=== PATIENT | female | born 1965 | race Caucasian/White ===

== ENCOUNTER → 2017-02-07 | Day surgery (SDC) | payer OTHER ==
[~2017-02-07] MED LIST: GABA-585 PO; IV RINGERS,LACTATED 1000ML 1,000 ML IV SCH; LIDOCAINE 1% PF 2 ML VIAL. ID PRN; LIDOCAINE 2% PF Vial for OR 5 ML VIAL. ONE; LORA10CA PO; ONDANSETRON PF 4 MG/2 ML VIAL. IV PRN; PRAM0.255 PO; PROPOFOL 20 ML IV ONE; PROPOFOL 60 ML IV ONE; fentaNYL PF VIAL 100 MCG/2 ML VIAL IV ONE; fentaNYL PF VIAL 100 MCG/2 ML VIAL IV PRN
[2017-02-07 11:27] VITALS: BP 128/70
--- NOTE | 2017-02-10 13:19 | PATHOLOGY ---
PATHOLOGY REPORT * * * * * * * * FINAL DIAGNOSIS: Gastric biopsy, gastric ulcer: - Active chronic gastritis, moderate, with few Helicobacter organisms identified. COMMENT: Sections of the gastric ulcer biopsy reveal segments of gastric antral mucosa showing focal congestion and moderate active chronic inflammation. An immunoperoxidase stain for Helicobacter is obtained. There are a few Helicobacter organisms identified. There is no evidence of malignancy. (JPM:mml; 02/10/2017) REPORT ELECTRONICALLY SIGNED BY: Malcolm Smalls M.D. DATE/TIME: 02/10/2017 13:18 * * * * * * * * GROSS PATHOLOGY: Received in formalin labeled "Izaiah Lincoln, gastric ulcer BX," are 2 segments of szymanski soft tissue measuring 0.8 x 0.4 x 0.3 cm in aggregate dimensions and ranging from 0.4 to 0.4 cm in maximum dimension. The specimen is submitted entirely in cassette A1. (TSD; 02/07/2017) INITIAL CPT CODE(S): A; 22069, 07065 Professional services performed [place] [facility] [address] Technical services performed by [facility] at [address] [place] [address]. SPECIMEN(S) RECEIVED: A.Gastric ulcer CLINICAL HISTORY: Epigastric pain, screening PATIENT: IZAIAH LINCOLN /AGE: 11 1965 (Age: 51) PATIENT #: [id number] ALT CASE #: SPECIMEN COLLECTION DATE: 02/07/2017 SPECIMEN RECEIVED DATE: 02/07/2017 [facility] [place] [address] - PHONE: [phone] * * * END OF REPORT * * *
== END | disposition home or self-care (01) ==
LOC: ENDOS 09:04
PROVIDERS: ATTEND Internal Medicine Gastroenterology
DX: Z12.11 Encounter for screening for malignant neoplasm of colon (principal); K64.0 First degree hemorrhoids; K63.89 Other specified diseases of intestine; K29.50 Unspecified chronic gastritis without bleeding; K25.9 Gastric ulcer, unspecified as acute or chronic, without hemorrhage or perforation; F41.9 Anxiety disorder, unspecified; M79.7 Fibromyalgia; J45.909 Unspecified asthma, uncomplicated; F32.9 Major depressive disorder, single episode, unspecified; Z83.71 Family history of colonic polyps; Z87.891 Personal history of nicotine dependence; Z88.8 Allergy status to other drugs, medicaments and biological substances; Z82.49 Family history of ischemic heart disease and other diseases of the circulatory system
CPT/HCPCS: 43239; 45378; 88305; 88342; J2704; J3010; J2001

== ENCOUNTER → 2017-02-21 | Outpatient (CLI) | payer OTHER ==
[2017-02-07 11:27] VITALS: BP 128/70
[~2017-02-21] MED LIST changes: -IV RINGERS,LACTATED 1000ML 1,000 ML IV SCH; -LIDOCAINE 1% PF 2 ML VIAL. ID PRN; -LIDOCAINE 2% PF Vial for OR 5 ML VIAL. ONE; -ONDANSETRON PF 4 MG/2 ML VIAL. IV PRN; -PROPOFOL 20 ML IV ONE; -PROPOFOL 60 ML IV ONE; -fentaNYL PF VIAL 100 MCG/2 ML VIAL IV ONE; -fentaNYL PF VIAL 100 MCG/2 ML VIAL IV PRN
--- NOTE | 2017-02-21 13:50 | KCIC ---
INDICATION: Incomplete colonoscopy, reached the hepatic flexure. No symptoms. TECHNIQUE: Double contrast barium enema was performed. Fluoroscopy time is 2 minutes 15 seconds. Image count including both overhead images and fluoroscopic images is 25. FINDINGS: Preparation prior to the barium enema was satisfactory. There is no significant retained stool. Lens Cementer film demonstrates calcified phleboliths in the pelvis. There is no polyp, plaque-like lesion, or annular constricting lesion identified. Cecum is filled, contrast refluxes into both the terminal ileum and into the appendix. IMPRESSION: Normal double contrast barium enema. Electronically signed by: Guillermo Dennis MD (02/21/2017 1:47 PM) [facility]
== END | disposition home or self-care (01) ==
LOC: KCIC 09:07
PROVIDERS: ATTEND Internal Medicine Gastroenterology
DX: Z12.11 Encounter for screening for malignant neoplasm of colon (principal); R10.9 Unspecified abdominal pain
CPT/HCPCS: 74270

== ENCOUNTER 2017-05-25 15:33 | Emergency (ER) | payer OTHER ==
[2017-05-25] MEDS: HYDROcodone/APAP 5/325MG 1 TAB TABLET PO (15:59)
== END 2017-05-25 16:04 | disposition home or self-care (01) ==
LOC: ER 15:33
DX: S29.012A Strain of muscle and tendon of back wall of thorax, initial encounter (principal); M79.7 Fibromyalgia; Z88.5 Allergy status to narcotic agent; Z88.6 Allergy status to analgesic agent; Z88.8 Allergy status to other drugs, medicaments and biological substances; X58.XXXA Exposure to other specified factors, initial encounter; Y93.89 Activity, other specified; Y99.8 Other external cause status; Y92.89 Other specified places as the place of occurrence of the external cause
CPT/HCPCS: 99283

== ENCOUNTER 2017-05-27 13:34 | Emergency (ER) | payer OTHER ==
[2017-05-27] MEDS: ONDANSETRON ODT 4 MG TAB.RAPDIS. PO (13:55)
[2017-05-27] MEDS: IV NORMAL SALINE 1000ML BAG 1,000 ML IV (14:17)
[2017-05-27] MEDS: ONDANSETRON PF 4 MG/2 ML VIAL. IV (14:22)
[2017-05-27] MEDS: fentaNYL PF VIAL 100 MCG/2 ML VIAL IV (14:26)
[2017-05-27 14:27] LABS: ADD MAN DIFF? NO
[2017-05-27 14:30] LABS: BASO # 0.1 x10^3/uL (0.0-0.2); BASO % 1 % (0-3); EOS # 0.1 x10^3/uL (0.0-0.7); EOS % 1 % (0-3); HEMATOCRIT 33.8 % (36.0-47.0); HEMOGLOBIN 10.6 g/dL (12.0-15.5); LYMPH # 1.7 x10^3/uL (1.0-4.8); LYMPH % 15 % (24-48); MEAN CORPUSCULAR HEMOGLOBIN 26 pg (25-35); MEAN CORPUSCULAR HGB CONC 31 g/dL (31-37); MEAN CORPUSCULAR VOLUME 83 fL (79-100); MONO # 0.6 x10^3/uL (0.0-1.1); MONO % 6 % (0-9); NEUT # 8.6 x10^3uL (1.8-7.7); NEUT % 78 % (31-73); PLATELET COUNT 309 x10^3/uL (140-400); RED BLOOD COUNT 4.05 x10^6/uL (3.50-5.40); RED CELL DISTRIBUTION WIDTH 15.3 % (11.5-14.5); WHITE BLOOD COUNT 11.1 x10^3/uL (4.0-11.0)
[2017-05-27 14:36] LABS: ANION GAP 8 (6-14); BLOOD UREA NITROGEN 27 mg/dL (7-20); BUN/CREATININE RATIO 45 (6-20); CALCIUM 9.6 mg/dL (8.5-10.1); CARBON DIOXIDE 30 mmol/L (21-32); CHLORIDE 101 mmol/L (98-107); CREATININE 0.6 mg/dL (0.6-1.0); GFR 104.6; GLUCOSE 100 mg/dL (70-99); POTASSIUM 4.5 mmol/L (3.5-5.1); SODIUM 139 mmol/L (136-145)
[2017-05-27 14:38] LABS: INFLUENZA A PATIENT NEGATIVE (NEGATIVE); INFLUENZA B PATIENT NEGATIVE (NEGATIVE); OBC FLU VALID
[2017-05-27 14:42] LABS: ALBUMIN 3.6 g/dL (3.4-5.0); ALK PHOS 80 U/L (46-116); ALT (SGPT) 57 U/L (14-59); AST (SGOT) 52 U/L (15-37); LIPASE 233 U/L (73-393); TOTAL BILIRUBIN 0.2 mg/dL (0.2-1.0); TOTAL PROTEIN 7.1 g/dL (6.4-8.2)
[2017-05-27 15:02] LABS: BILIRUBIN,URINE NEGATIVE (NEG); CLARITY,URINE CLOUDY; COLOR,URINE YELLOW; GLUCOSE,URINE NEGATIVE (NEG); NITRITE,URINE NEGATIVE (NEG); PH,URINE 7.5; PROTEIN,URINE NEGATIVE (NEG-TRACE); UROBILINOGEN,URINE 0.2 mg/dL (0.2 mg/dL)
[2017-05-27 15:16] LABS: BACTERIA,URINE 0 /HPF (0-FEW); RBC,URINE OCC /HPF (0-2); SQUAMOUS EPITHELIAL CELL,UR OCC /LPF; WBC,URINE OCC /HPF (0-4)
[2017-05-27] MEDS: MORPHINE SULFATE 4 MG/ML DISP.SYRIN. IV (15:18)
[2017-05-27] MEDS: hydrOXYzine IM 50 MG/ML VIAL IM (15:20)
== END 2017-05-27 15:50 | disposition home or self-care (01) ==
LOC: ER 13:34
DX: E86.0 Dehydration (principal); R11.2 Nausea with vomiting, unspecified; R19.7 Diarrhea, unspecified; M19.90 Unspecified osteoarthritis, unspecified site; F31.9 Bipolar disorder, unspecified; M79.7 Fibromyalgia; G43.909 Migraine, unspecified, not intractable, without status migrainosus; G89.29 Other chronic pain; Z90.710 Acquired absence of both cervix and uterus; Z88.5 Allergy status to narcotic agent; Z88.8 Allergy status to other drugs, medicaments and biological substances
CPT/HCPCS: 36415; 80053; 81001; 83690; 85025; 87804; 87804-59; 96361; 96372; 96374; 96375; 99284-25; J2270; J2405; J3010; J3410; J7030; Q0162

== ENCOUNTER 2017-05-28 11:44 | Emergency (ER) | payer OTHER | END 2017-05-28 13:13 | disposition home or self-care (01) | LOC: ER 13:13 | DX: G89.29 Other chronic pain (principal); M25.511 Pain in right shoulder; M79.7 Fibromyalgia; F31.9 Bipolar disorder, unspecified; G43.909 Migraine, unspecified, not intractable, without status migrainosus; F11.20 Opioid dependence, uncomplicated; Z88.5 Allergy status to narcotic agent; Z88.6 Allergy status to analgesic agent; Z88.8 Allergy status to other drugs, medicaments and biological substances | CPT/HCPCS: 73030; 99284 ==

== ENCOUNTER → 2018-10-16 | Outpatient (CLI) | payer MEDICAID ==
[2017-05-28 12:14] VITALS: BP 163/80
[~2018-10-16] MED LIST changes: +ALBU2.5V8 INH; +ASPI-621 PO; +GABA600T7 PO; +HYDR-3164 PO; +OMEP40CA5 PO; +ONDA8TAB12 PO; +OSEL75CA PO; +SOLI5TAB2 PO; +TIZA4TAB PO; +TOPI25TA7 PO; +VENL150C PO; +[UNRECOGNIZED DRUG - REMARK] PO
[2018-10-16 14:00] LABS: BASO % 1 % (0-3); EOS # 0.1 x10^3/uL (0.0-0.7); EOS % 2 % (0-3); HEMOGLOBIN 11.2 g/dL (12.0-15.5); LYMPH # 1.3 x10^3/uL (1.0-4.8); LYMPH % 25 % (24-48); MEAN CORPUSCULAR HEMOGLOBIN 25 pg (25-35); MEAN CORPUSCULAR HGB CONC 32 g/dL (31-37); MEAN CORPUSCULAR VOLUME 78 fL (79-100); MONO # 0.3 x10^3/uL (0.0-1.1); MONO % 6 % (0-9); NEUT # 3.6 x10^3uL (1.8-7.7); NEUT % 66 % (31-73); PLATELET COUNT 335 x10^3/uL (140-400); RED BLOOD COUNT 4.49 x10^6/uL (3.50-5.40); RED CELL DISTRIBUTION WIDTH 15.3 % (11.5-14.5); WHITE BLOOD COUNT 5.4 x10^3/uL (4.0-11.0)
--- NOTE | 2018-10-16 14:03 | EKG ---
[facility] [address] [place] [address] Test Date: 2018-10-16 Test Time: 14:05:02 Pat Name: IZAIAH LINCOLN Department: Room: Gender: F Outpatient Admitting Clerk: TEAGAN : 1965 Requested By: ANOOP KOTHARI Order Number: [id number] Reading MD: Ayaan Ulrich Measurements Intervals [place] Rate: 67 P: 44 HI: 132 QRS: -19 QRSD: 76 T: 25 QT: 414 QTc: 440 Interpretive Statements SINUS RHYTHM LEFTWARD AXIS Electronically Signed On 10-20-2018 16:14:23 CDT by Ayaan Ulrich
--- NOTE | 2018-10-16 15:07 | RAD ---
Chest, 2 views, 10/16/2018: HISTORY: Preop evaluation for cystocele and rectocele surgery The heart size is of normal. A dense nodule in the left lower lobe is probably a calcified granuloma. No acute infiltrate is seen. There is no evidence of pleural fluid. IMPRESSION: No acute cardiopulmonary abnormality is detected. Electronically signed by: Chencho Ventura MD (10/16/2018 3:04 PM) [facility]
[2018-10-16 18:28] LABS: ALBUMIN 3.9 g/dL (3.4-5.0); ALBUMIN/GLOBULIN RATIO 1.1 (1.0-1.7); CALCIUM 10.3 mg/dL (8.5-10.1); CREATININE 0.7 mg/dL (0.6-1.0); GFR 87.2; POTASSIUM 3.8 mmol/L (3.5-5.1); TOTAL BILIRUBIN 0.2 mg/dL (0.2-1.0); TOTAL PROTEIN 7.6 g/dL (6.4-8.2)
--- NOTE | 2018-10-20 11:28 | NUR ---
FAXED PRE - OP TEST REPORTS TO 'S OFFICE FOR REVIEW WITH A NOTE THAT EKG'S PRELIMINARY REPORT WAS REVIEWED BY DULCE MARIA MICHEL RN, ANESTHESIA TEAM AT 1315 AND WAS OKAY AT 10/19/2018 AT 1505 AND RECEIVED TRANSMITTAL CONFIRMATION. ALSO CALLED 'S OFFICE AND TALKED TO CRYS MARIANO AND NOTIFIED THAT UA WAS NOT DONE 10/16/18 VISIT AND SHE SAID SHE WILL CALL PATIENT.
== END | disposition home or self-care (01) ==
LOC: SURGPAT 12:51
PROVIDERS: ATTEND Obstetrics & Gynecology
DX: Z01.818 Encounter for other preprocedural examination (principal); N81.10 Cystocele, unspecified; N81.6 Rectocele; R91.1 Solitary pulmonary nodule
CPT/HCPCS: 36415; 71046; 80053; 85025; 93005

== ENCOUNTER 2018-10-22 05:53 | Observation (INO) | payer OTHER ==
[2018-10-22] VITALS (12 sets, daily range): BP systolic 108–142; BP diastolic 60–94
[~2018-10-22] VITALS: Ht 154.9 cm; Wt 77.0 kg
[~2018-10-22 05:53] MED LIST changes: +BUPIVACAINE-EPI 0.25%-1:200000 MPF 30 ML VIAL. ONE; +ESTROGENS, CONJ VAGINAL CREAM 30GM TUBE. ONE
[2018-10-22] MEDS ORDERED: BUPIVACAINE-EPI 0.25%-1:200000 MPF 30 ML VIAL. ONE (06:15)
[2018-10-22] MEDS ORDERED: fentaNYL PF VIAL 100 MCG/2 ML VIAL IV PRN ×2 (07:00)
[2018-10-22] MEDS ORDERED: ONDANSETRON PF 4 MG/2 ML VIAL. IV PRN ×2 (07:00→10:15)
[2018-10-22] MEDS ORDERED: IV RINGERS,LACTATED 1000ML 1,000 ML IV SCH (07:00)
[2018-10-22] MEDS ORDERED: LIDOCAINE 1% PF 2 ML VIAL. ID PRN (07:00)
[2018-10-22] MEDS ORDERED: PROPOFOL 20 ML IV ONE (07:11)
[2018-10-22] MEDS ORDERED: ONDANSETRON PF 4 MG/2 ML VIAL. ONE (07:11)
[2018-10-22] MEDS ORDERED: ROCURONIUM 50 MG/5 ML VIAL. ONE (07:11)
[2018-10-22] MEDS ORDERED: DEXAMETHASONE SOD PHOS 4 MG/ML VIAL ONE (07:11)
[2018-10-22] MEDS ORDERED: LIDOCAINE 2% PF 5 ML VIAL. ONE (07:11)
[2018-10-22] MEDS ORDERED: FAMOTIDINE 20 MG/2 ML VIAL ONE (07:11)
[2018-10-22] MEDS ORDERED: fentaNYL PF VIAL 100 MCG/2 ML VIAL ONE ×2 (07:12→08:50)
[2018-10-22] MEDS ORDERED: MIDAZOLAM HCL/PF 2 MG/2 ML VIAL. ONE (07:12)
[2018-10-22] MEDS ORDERED: ALBUTEROL SULFATE 2.5 MG/3 ML NEBU. INH PRN (07:45)
[2018-10-22] MEDS ORDERED: GLYCOPYRROLATE 1 MG/5 ML VIAL. ONE (08:06)
[2018-10-22] MEDS ORDERED: NEOSTIGMINE METHYLSULFATE 5 MG/5 ML SYRINGE. ONE (08:07)
[2018-10-22] MEDS ORDERED: SEVOFLURANE > 120 MINUTES. IH ONE (09:22)
--- NOTE | 2018-10-22 10:05 | PDOC ---
BRIEF OPERATIVE NOTE Date: Oct 22, 2018 Pre-Op Diagnosis cystocele, rectocele, GSUI with uretheral hypermobility Post-Op Diagnosis same Procedure Performed cystocele and rectocele repairs with TVT abbrevo and cystoscopy Surgeon Dr. Rosa Kothari Anesthesiologist Dr. Romero Anesthesia Type: General Blood Loss 25cc IV Fluid 1L Urine Output 350cc clear via recio Specimens Obtained none Findings 2-3 degree cystocele, 2 rectocele, uretheral hypermobility Complications none Operative Note [id number] ROSA KOTHARI MD Oct 22, 2018 10:05
[2018-10-22] MEDS ORDERED: HYDROcodone/APAP 5/325MG 1 TAB TABLET PO PRN (10:15)
[2018-10-22] MEDS ORDERED: 0.9 % SODIUM CHLORIDE 10 ML DISP.SYRIN. IV PRN (10:15)
[2018-10-22] MEDS ORDERED: NALOXONE 0.4 MG/ML VIAL. IV PRN (10:15)
[2018-10-22] MEDS ORDERED: ZOLPIDEM 5 MG TABLET. PO PRN (10:15)
[2018-10-22] MEDS ORDERED: diphenhydrAMINE 50 MG/ML VIAL IV PRN (10:15)
[2018-10-22] MEDS ORDERED: MAGNESIUM HYDROXIDE 2,400 MG/30 ML ORAL.SUSP. PO PRN (10:15)
[2018-10-22] MEDS ORDERED: MAG HYDROX/ALUMINUM HYD/SIMETH 30 ML ORAL.SUSP PO PRN (10:15)
[2018-10-22] MEDS ORDERED: LACTULOSE 20 GM/30 ML SOLUTION. PO PRN (10:15)
[2018-10-22] MEDS ORDERED: diphenhydrAMINE HCL 25 MG CAPSULE PO PRN (10:15)
[2018-10-22] MEDS ORDERED: CALCIUM CARBONATE 500 MG TAB.CHEW PO PRN (10:15)
[2018-10-22] MEDS ORDERED: SIMETHICONE 80 MG TAB.CHEW PO PRN (10:15)
[2018-10-22] MEDS ORDERED: SCOPOLAMINE 1.5MG PATCH. TD ONE ×3 (10:27→10:30)
[2018-10-22] MEDS ORDERED: MORPHINE SULFATE 2 MG/ML VIAL. IV PRN (10:30)
[2018-10-22] MEDS: MORPHINE SULFATE 2 MG/ML VIAL. IV PRN ×3 (10:34→22:26)
[2018-10-22] MEDS ORDERED: ceFAZolin 2GM PREMIX 2 GM/50 ML BAG IV ONE (11:00)
--- NOTE | 2018-10-22 11:32 | OP ---
DATE OF SURGERY: This patient is a 53-year-old with a cystocele, rectocele, urethral hypermobility and genuine stress urinary incontinence, desiring surgical repair. She underwent an anterior and posterior colporrhaphy with cystocele and rectocele repairs, TVT-Abbrevo and cystoscopy. SURGEON: Anoop Kothari M.D. SUPERVISING FILM OR VIDEOTAPE EDITOR: OR personnel. ANESTHESIA: General. ANESTHESIOLOGIST: Merrill Romero M.D. ESTIMATED BLOOD LOSS: 25 mL. URINE OUTPUT: 350 mL clear via Wray catheter. IV FLUIDS: 1 liter of crystalloid. SPECIMENS: None. FINDINGS: Second to third degree cystocele, second-degree rectocele, urethral hypermobility. COMPLICATIONS: None. DESCRIPTION OF PROCEDURE: This patient was taken to the operating room where general anesthesia was placed. The patient was placed in dorsal lithotomy position in Guy stirrups. The patient's vagina was prepped and draped in the normal sterile fashion and a Wray catheter had been inserted under sterile technique. Upon my arrival, a timeout was performed. She had received her preoperative antibiotics and a weighted speculum was placed in the patient's vagina. Allis clamps were placed on the vaginal cuff. She was injected with a total of 150 mL of a dilute solution of 30 mL of 0.25% Marcaine with epinephrine to 120 mL of injectable saline in the anterior repair where the suburethral sling would go and the posterior repair. 150 mL total was used for all 3 areas. Injected the cystocele, the rectocele and the suburethral and laterally out to the obturator. Once this was done, a scalpel was used to make a small vertical incision just up from the cuff. Allis clamps were placed on these. Metzenbaum scissors were used to open up the defect and taken up to about 1-2 cm below the urethral opening where the sling would go. Allis clamps were placed along the way. At this point, sharp and blunt dissection was done with the Metzenbaum scissors and a Ray-Timmy to gently reduce the defect from the vaginal mucosa. Once it was reduced, a series of 5 or 6 interrupted 2-0 Vicryl stitches were placed and tagged and went back and used a Lacy to reduce the defect and pushing them together and tying it to reduce the defect. Few imbricating stitches over the top were placed as well with excellent results. The excess vaginal mucosa was trimmed with the Metzenbaum scissors and the defect was closed with a full length 2-0 Vicryl in an anterior to posterior running locked fashion. At this point, a small 1 cm vertical incision was placed 1 cm below the urethral opening. Again, it had previously been injected with local. Allis clamps were placed on either side of this and the Metzenbaum scissors were used to dissect laterally out to the obturator foramen, taking care to open and spread and create the plane just under the vaginal mucosa out to the obturator. Marking pen was used to chauncey the urethral opening, 2 cm up and 2 cm out from the lateral groin fold for the expected sling location. The wing guide applicator was placed on the patient's right side. The TVT-Abbrevo was placed through the wing guide applicator and came out fraction away from this marking. A small chauncey was made a marah on the skin over it and it popped right through. A Lacy clamp was placed over this and it was pulled through. The wing guide applicator was removed and the sling was removed from the handle courtesy car driver below. This was done exactly the same on the left side. Care was taken to make sure there was no buttonholing and that there was nothing vaginally showing. Cystoscopy was performed with about 400-500 mL of fluid. The bladder bubble was seen. There was no bleeding. There was no tape. Both urethral openings were seen. There was no trauma to the bladder at all. So, at this point, lot of the fluid was drained from the bladder. A #7 dilator was placed over the sling. They were pulled taut. The plastic sheaths, the end were cut off. Lacy clamps were placed over the plastic sheaths. They were removed. The Prolene sutures were used to make sure it was centered in the midline over the dilator and then they were removed and the midline Prolene marker was cut as well and the dilator was removed. FloSeal was placed over the bladder sling and it was closed in a 2-layer closure, first with a Monocryl in a subcutaneous and then the 2-0 Vicryl over the top and Dermabond was used on the lateral groin external sites as well. At this point, at 4 and 7 o'clock, curved Raheem's were placed on the outside, again it had been previously injected. A celena shaped wedge was taken out of the opening on the perineal body and inside. Metzenbaum scissors were used to open up the posterior defect placing Allises along the way and then again sharply and bluntly using the Metzenbaum scissors to release the edges and then open Ray-Timmy 4 x 4 to gently push down the rectocele defect off the vaginal mucosa. Again, 5 or 6 interrupted 2-0 Vicryl stitches were placed reducing this defect as well and went back and were tied while gently pushing down the defect. No imbricating stitches were needed here. I believe just the right side was trimmed as the left side did not have a lot of extra, but the right side did, and it was closed in a running locked fashion to the introitus. It was taken under. Perineal body was brought back together and then subqued on the perineal body much like an episiotomy, taken back in the vagina and tied. Once it was done, the procedure was ended. All sponge, lap and needle counts were correct x 2 by OR personnel. The patient was awakened from anesthesia, extubated and brought to recovery room in stable condition. ANOOP KOTHARI MD DR: JEAN CLAUDE/james JOB#: [id number] / [id number]
[2018-10-22] MEDS ORDERED: hydrOXYzine 25 MG TABLET PO PRN (11:45)
[2018-10-22] MEDS ORDERED: ALBUTEROL SULFATE 2.5 MG/3 ML NEBU. NEB PRN (11:45)
[2018-10-22] MEDS: oxyCODONE/APAP 5/325 1 TAB TABLET PO PRN (20:17)
[2018-10-22] MEDS ORDERED: GABAPENTIN 300 MG CAPSULE. PO SCH (21:00)
[2018-10-23 06:25] LABS: CALCIUM 9.4 mg/dL (8.5-10.1); CREATININE 0.7 mg/dL (0.6-1.0); GFR 87.2; POTASSIUM 4.3 mmol/L (3.5-5.1)
[2018-10-23] MEDS ORDERED: PANTOPRAZOLE 40 MG TABLET.DR. PO SCH (07:30)
[2018-10-23] MEDS: oxyCODONE/APAP 5/325 1 TAB TABLET PO PRN ×4 (07:47→15:33)
--- NOTE | 2018-10-23 08:45 | PDOC ---
SURGICAL PROGRESS NOTE Subjective Doing well without complaints. Voiding without catheter. Small amount of spotting with restroom. Pain well controlled. Tolerating regular diet without n/v Vital Signs Vital Signs Date Time Temp Pulse Resp B/P (MAP) Pulse Ox O2 Delivery O2 Flow Rate FiO2 10/23/18 07:47 18 Room Air 10/22/18 22:26 95 10/22/18 20:38 98.0 99 108/60 (76) 98.0 10/22/18 09:51 10 I&O Intake and Output 10/23/18 07:00 Intake Total 1770 ml Output Total 1275 ml Balance 495 ml Intake Oral 720 ml IV Total 1050 ml Output Urine Total 1250 ml Estimated Blood Loss 25 ml # Voids 3 PATIENT HAS A OROZCO: No Labs Laboratory Tests Test 10/23/18 05:30 Hematocrit 30.3 % (36.0-47.0) Sodium Level 142 mmol/L (136-145) Potassium Level 4.3 mmol/L (3.5-5.1) Chloride Level 104 mmol/L (98-107) Carbon Dioxide Level 31 mmol/L (21-32) Anion Gap 7 (6-14) Blood Urea Nitrogen 20 mg/dL (7-20) Creatinine 0.7 mg/dL (0.6-1.0) Estimated GFR (Cockcroft-Gault) 87.2 Glucose Level 123 mg/dL (70-99) Calcium Level 9.4 mg/dL (8.5-10.1) Laboratory Tests Test 10/23/18 05:30 Hematocrit 30.3 % (36.0-47.0) Sodium Level 142 mmol/L (136-145) Potassium Level 4.3 mmol/L (3.5-5.1) Chloride Level 104 mmol/L (98-107) Carbon Dioxide Level 31 mmol/L (21-32) Anion Gap 7 (6-14) Blood Urea Nitrogen 20 mg/dL (7-20) Creatinine 0.7 mg/dL (0.6-1.0) Estimated GFR (Cockcroft-Gault) 87.2 Glucose Level 123 mg/dL (70-99) Calcium Level 9.4 mg/dL (8.5-10.1) I have reviewed the following labs, vitals, nursing CENTRAL NERVOUS SYSTEM: Migraine Heme/Onc: No pertinent hx Psych: Anxiety Assessment/Plan POD#1 s/p anterior and posterior repairs with TVT abbrevo and cystoscopy Routine po care d/c to home NPV x 6 weeks light/limited activity x 2 weeks already has pain med script f/u one week with me NO driving while on narcotics call or return sooner for any other questions or concerns not limited to but including pain unrelieved with pain meds, increased or unexplained vb or T>100.4 ANOOP KOTHARI MD Oct 23, 2018 08:45
--- NOTE | 2018-10-23 08:48 | PDOC3 ---
Discharge Summary Visit Information Date of Admission: Oct 22, 2018 Date of Discharge: Oct 23, 2018 Final Diagnosis pelvic organ prolapse with GSUI and uretheral hypermobility Brief Hospital Course Allergies Allergies Coded Allergies Type Severity Reaction Last Updated Verified hydromorphone Allergy Intermediate 10/22/18 Yes ketorolac Allergy Intermediate 10/22/18 Yes prochlorperazine Allergy Intermediate 10/22/18 Yes adhesive Adverse Reaction Mild SKIN IRRITATION 10/22/18 Yes Vital Signs Vital Signs Date Time Temp Pulse Resp B/P (MAP) Pulse Ox O2 Delivery O2 Flow Rate FiO2 10/23/18 07:47 18 Room Air 10/22/18 22:26 95 10/22/18 20:38 98.0 99 108/60 (76) 98.0 10/22/18 09:51 10 Lab Results Laboratory Tests Test 10/23/18 05:30 Hematocrit 30.3 % (36.0-47.0) Sodium Level 142 mmol/L (136-145) Potassium Level 4.3 mmol/L (3.5-5.1) Chloride Level 104 mmol/L (98-107) Carbon Dioxide Level 31 mmol/L (21-32) Anion Gap 7 (6-14) Blood Urea Nitrogen 20 mg/dL (7-20) Creatinine 0.7 mg/dL (0.6-1.0) Estimated GFR (Cockcroft-Gault) 87.2 Glucose Level 123 mg/dL (70-99) Calcium Level 9.4 mg/dL (8.5-10.1) Laboratory Tests Test 10/23/18 05:30 Hematocrit 30.3 % (36.0-47.0) Sodium Level 142 mmol/L (136-145) Potassium Level 4.3 mmol/L (3.5-5.1) Chloride Level 104 mmol/L (98-107) Carbon Dioxide Level 31 mmol/L (21-32) Anion Gap 7 (6-14) Blood Urea Nitrogen 20 mg/dL (7-20) Creatinine 0.7 mg/dL (0.6-1.0) Estimated GFR (Cockcroft-Gault) 87.2 Glucose Level 123 mg/dL (70-99) Calcium Level 9.4 mg/dL (8.5-10.1) Brief Hospital Course Ms. Almonte is a 53 old female who presented with GSUI, uretheral hypermobility and both cystocele and rectocele. She underwent repair yesterday without co mplication and has had an unremarkable postoperative course. She is tolerating regular diet without n/v, ambulating well, voiding without catheter and states incontinence is improving already. She will be d/c to home today Discharge Information Condition at Discharge: Improved Follow Up: Weeks Disposition/Orders: D/C to Home Scheduled Gabapentin (Gabapentin) 600 Mg Tablet, 300 MG PO HS for NEUROGENIC PAIN, (Reported) Entered as Reported by: TERI BAUER on 10/16/18 1318 Last Taken: Unknown Dose on 10/21/18 Last Action: Converted on 10/22/18739 by ANOOP KOTHARI Loratadine (Claritin) 10 Mg Capsule, 10 MG PO DAILY, (Reported) Entered as Reported by: ERIC ADHIKARI on 02/07/17 0947 Last Taken: Unknown Dose on 10/21/18 Last Action: HELD on 10/22/18 0740 by ANOOP KOTHARI Omeprazole (Omeprazole) 40 Mg Capsule.dr, 1 CAP PO DAILY, #30 Ref 3 (Reported) Entered as Reported by: NY BARRETO on 05/15/17 1335 Last Taken: Unknown Dose on 10/22/18 0500 Last Action: Converted on 10/22/18739 by ANOOP KOTHARI Pramipexole Di-Hcl (Mirapex) 0.25 Mg Tablet, 0.75 MG PO PM for RLS, (Reported) Entered as Reported by: TERI BAUER on 10/16/18 1319 Last Taken: Unknown Dose on 10/21/18 Last Action: HELD on 10/22/18739 by ANOOP KOTHARI Solifenacin Succinate (Vesicare) 5 Mg Tablet, 1 TAB PO DAILY for INCONTIENCE, #30 Ref 11 (Reported) Entered as Reported by: TERI BAUER on 10/16/18 1320 Last Taken: Unknown Dose on 10/21/18 Last Action: HELD on 10/22/18739 by ANOOP KOTHARI Tizanidine Hcl (Tizanidine Hcl) 4 Mg Tablet, 1 TAB PO BID for DEPRESSION, #60 (Reported) Entered as Reported by: TERI BAUER on 10/16/18 1322 Last Taken: Unknown Dose on 10/22/18 0500 Last Action: HELD on 10/22/18 0740 by ANOOP KOTHARI Topiramate (Topiramate) 25 Mg Tablet, 1 TAB PO BID for HEADACHES, #60 (Reported) Entered as Reported by: TERI BAUER on 10/16/18 1321 Last Taken: Unknown Dose on 10/22/18 0400 Last Action: HELD on 10/22/18739 by ANOOP KOTHARI Venlafaxine Hcl (Effexor Xr) 150 Mg Cap.er.24h, 1 CAP PO DAILY, #30 Ref 1 (Reported) Entered as Reported by: NY BARRETO on 05/15/17 1335 Last Taken: Unknown Dose on 10/21/18 Last Action: HELD on 10/22/18739 by ANOOP KOTHARI Scheduled PRN Albuterol Sulfate (Proair Hfa) 8.5 Gm Hfa.aer.ad, 1 PUFF INH PRN Q6HRS PRN for SHORTNESS OF BREATH, (Reported) Entered as Reported by: TERI BAUER on 10/16/18 1321 Last Taken: Unknown Dose on 10/22/18 Last Action: Continued on 10/22/18739 by ANOOP KOTHARI Aspirin/Acetaminophen/Caffeine (Excedrin Extra Strength Caplet) 1 Each Tablet, 1 EACH PO PRN PRN for PAIN, (Reported) Entered as Reported by: TERI BAUER on 10/16/18 1325 Last Taken: Unknown Dose on 10/21/18 Last Action: HELD on 10/22/18739 by ANOOP KOTHARI [Pain Aids] , 1 TAB PO PRN PRN for PAIN, (Reported) Entered as Reported by: TERI BAUER on 10/16/18 1323 Last Taken: Unknown Dose on 10/21/18 Last Action: HELD on 10/22/18739 by ANOOP KOTHARI Patient Instructions Patient Instructions POD#1 s/p anterior and posterior repairs with TVT abbrevo and cystoscopy Routine po care d/c to home NPV x 6 weeks light/limited activity x 2 weeks already has pain med script f/u one week with me NO driving while on narcotics call or return sooner for any other questions or concerns not limited to but including pain unrelieved with pain meds, increased or unexplained vb or T>100.4 ANOOP KOTHARI MD Oct 23, 2018 08:48
[2018-10-23 11:00] VITALS: BP 117/80
[2018-10-23] MEDS ORDERED: IBUPROFEN 400 MG TABLET. PO PRN (11:00)
[2018-10-23 15:50] VITALS: BP 133/71
--- NOTE | 2018-10-23 16:20 | NUR ---
Discharge Discharge instructions given to patient and son at this time, no questions or concerns noted. To follow up with DR Diamond in 1 week. Patient ambulated off unit with her son and all her belongings.
== END 2018-10-23 17:11 | disposition home or self-care (01) ==
LOC: SURG 05:53 → 3 NORTH 10:50
PROVIDERS: ADMIT Obstetrics & Gynecology; ATTEND Obstetrics & Gynecology
DX: N39.46 Mixed incontinence (principal); N18.6 End stage renal disease; N81.10 Cystocele, unspecified; M79.7 Fibromyalgia; M81.0 Age-related osteoporosis without current pathological fracture; J44.9 Chronic obstructive pulmonary disease, unspecified; N81.6 Rectocele
CPT/HCPCS: 36415; 57260; 57288; 80048; 85014; 86850; 86900; 86901; 96374; 96375; 96376; A7015; C1760; G0378; G0379; J0696; J1100; J1200; J2001; J2250; J2270; J2405; J2704; J2710; J3010; J3490; J7120; C1771

== ENCOUNTER 2019-05-15 19:39 | Emergency (ER) | payer MEDICAID, OTHER ==
[~2019-05-15] VITALS: Ht 170.2 cm; Wt 74.8 kg
[~2019-05-15 19:39] MED LIST changes: -BUPIVACAINE-EPI 0.25%-1:200000 MPF 30 ML VIAL. ONE; -ESTROGENS, CONJ VAGINAL CREAM 30GM TUBE. ONE; +OMEP40CA45 PO; -OMEP40CA5 PO; -TIZA4TAB PO; +TIZA4TAB2 PO
--- NOTE | 2019-05-15 20:29 | PHYS DOC ---
Past Medical History Past Medical History: Arthritis, Bipolar, COPD, Fibromyalgia, GERD, Migraines, Other (MK STOVALL APRN) Past Surgical History: Hysterectomy, Other Additional Past Surgical Histo: BLADDER SLING/BREAST IMPLANTS/HEMORRHOID/LUMP REMOVED THYROID (MK STOVALL APRN) Alcohol Use: None Drug Use: None (MK STOVALL APRN) Attending Signature I have participated in the care of this patient and I have reviewed and agree with all pertinent clinical information above including history, exam, and recommendations. (JUSTIN SHAW MD) Adult General Chief Complaint Chief Complaint: MULTIPLE COMPLAINTS HPI HPI Patient is a 54 year old [female] who presents with [heavily for the past 2 days. Patient reports she has had a headache worsening over the last couple days, reports she has a history of headaches similar to this, this is no different than what she normally feels. States sometimes she has headaches every couple days (she has some once every other year. Denies any recent fevers, denies any recent illness. Patient denies any change in vision states she had try to take any Tylenol this morning, however she had vomited it back up. States she feels like this usually when she has headaches. Denies any diarrhea. Denies abdominal pain. Denies any chest discomfort or shortness of breath. Does report some photophobia. Patient states "when I get like this they usually give me some hydroxyzine and some Demerol or some hydroxyzine and some morphine"] (MK STOVALL APRN) Review of Systems Review of Systems Constitutional: Denies fever or chills [] Eyes: Denies change in visual acuity, redness, or eye pain does report some photophobia [] HENT: Denies nasal congestion or sore throat [] Respiratory: Denies cough or shortness of breath [] Cardiovascular: No additional information not addressed in HPI [] GI: Denies abdominal pain, reports she has a some nausea and vomiting. Denies bloody stools or diarrhea [] : Denies dysuria or hematuria [] Musculoskeletal: Denies back pain or joint pain [] Integument: Denies rash or skin lesions [] Neurologic: Reports headache feeling like type and posterior head, to front. Denies focal weakness or sensory changes [] Endocrine: Denies polyuria or polydipsia [] All other systems were reviewed and found to be within normal limits, except as documented in this note. (MK STOVALL APRN) Current Medications Current Medications Current Medications Medications (Trade) Dose Ordered Sig/Dorie Start Time Stop Time Status Last Admin Dose Admin Acetaminophen/ Aspirin/Caffeine (Excedrin Migraine) 1 tab PRN Q6HRS PRN 05/15/19 21:00 05/15/19 21:45 DC 05/15/19 21:13 1 TAB Diphenhydramine HCl (Benadryl) 50 mg 1X ONCE 05/15/19 20:30 05/15/19 20:31 DC 05/15/19 20:28 50 MG Metoclopramide HCl (Reglan Vial) 10 mg 1X ONCE 05/15/19 20:30 05/15/19 20:31 DC 05/15/19 20:28 10 MG Sodium Chloride 1,000 ml @ 1,000 mls/hr 1X ONCE 05/15/19 20:30 05/15/19 21:29 DC 05/15/19 20:28 1,000 MLS/HR (JUSTIN SHAW MD) Allergies Allergies Allergies Coded Allergies Type Severity Reaction Last Updated Verified hydromorphone Allergy Intermediate 10/22/18 Yes ketorolac Allergy Intermediate 10/22/18 Yes prochlorperazine Allergy Intermediate 10/22/18 Yes adhesive Adverse Reaction Mild SKIN IRRITATION 10/22/18 Yes (JUSTIN SHAW MD) Physical Exam Physical Exam Constitutional: Well developed, well nourished, no acute distress, non-toxic appearance. [] HENT: Normocephalic, atraumatic, bilateral external ears normal, oropharynx moist, no oral exudates, nose normal. [] Eyes: PERRLA, EOMI, conjunctiva normal, no discharge. [] Neck: Normal range of motion, no tenderness, supple, no stridor. [] Cardiovascular:Heart rate regular rhythm, no murmur [] Lungs & Thorax: Bilateral breath sounds clear to auscultation [] Abdomen: Bowel sounds normal, soft, no tenderness, no masses, no pulsatile masses. [] Skin: Warm, dry, no erythema, no rash. [] Back: No tenderness, no CVA tenderness. [] Extremities: No tenderness, no cyanosis, no clubbing, ROM intact, no edema. [] Neurologic: Alert and oriented X 3, normal motor function, normal sensory function, no focal deficits noted. [] Psychologic: Affect normal, judgement normal, mood normal. [] (MK STOVALL APRN) Current Patient Data Vital Signs Vital Signs Date Time Temp Pulse Resp B/P (MAP) Pulse Ox O2 Delivery O2 Flow Rate FiO2 05/15/19 21:19 82 22 138/77 (97) 99 Room Air 05/15/19 19:41 97.5 97.5 (JUSTIN SHAW MD) Lab Values Laboratory Tests Test 05/15/19 20:04 White Blood Count 8.8 x10^3/uL (4.0-11.0) Red Blood Count 4.64 x10^6/uL (3.50-5.40) Hemoglobin 13.4 g/dL (12.0-15.5) Hematocrit 39.6 % (36.0-47.0) Mean Corpuscular Volume 85 fL (79-100) Mean Corpuscular Hemoglobin 29 pg (25-35) Mean Corpuscular Hemoglobin Concent 34 g/dL (31-37) Red Cell Distribution Width 13.6 % (11.5-14.5) Platelet Count 290 x10^3/uL (140-400) Neutrophils (%) (Auto) 86 % (31-73) H Lymphocytes (%) (Auto) 11 % (24-48) L Monocytes (%) (Auto) 3 % (0-9) Eosinophils (%) (Auto) 0 % (0-3) Basophils (%) (Auto) 0 % (0-3) Neutrophils # (Auto) 7.6 x10^3/uL (1.8-7.7) Lymphocytes # (Auto) 1.0 x10^3/uL (1.0-4.8) Monocytes # (Auto) 0.3 x10^3/uL (0.0-1.1) Eosinophils # (Auto) 0.0 x10^3/uL (0.0-0.7) Basophils # (Auto) 0.0 x10^3/uL (0.0-0.2) Segmented Neutrophils % 84 % (35-66) H Lymphocytes % 9 % (24-48) L Monocytes % 7 % (0-10) Platelet Estimate Adequate (ADEQUATE) Giant Platelets Occ Sodium Level 136 mmol/L (136-145) Potassium Level 3.4 mmol/L (3.5-5.1) L Chloride Level 102 mmol/L (98-107) Carbon Dioxide Level 25 mmol/L (21-32) Anion Gap 9 (6-14) Blood Urea Nitrogen 15 mg/dL (7-20) Creatinine 0.6 mg/dL (0.6-1.0) Estimated GFR (Cockcroft-Gault) 103.8 BUN/Creatinine Ratio 25 (6-20) H Glucose Level 108 mg/dL (70-99) H Calcium Level 10.3 mg/dL (8.5-10.1) H Total Bilirubin 0.4 mg/dL (0.2-1.0) Aspartate Amino Transferase (AST) 18 U/L (15-37) Alanine Aminotransferase (ALT) 16 U/L (14-59) Alkaline Phosphatase 103 U/L (46-116) Troponin I Quantitative < 0.017 ng/mL (0.000-0.055) Total Protein 7.3 g/dL (6.4-8.2) Albumin 3.9 g/dL (3.4-5.0) Albumin/Globulin Ratio 1.1 (1.0-1.7) Laboratory Tests 05/15/19 20:04 Laboratory Tests 05/15/19 20:04 (JUSTIN SHAW MD) Lab Values Laboratory Tests Test 05/15/19 20:04 White Blood Count 8.8 x10^3/uL (4.0-11.0) Red Blood Count 4.64 x10^6/uL (3.50-5.40) Hemoglobin 13.4 g/dL (12.0-15.5) Hematocrit 39.6 % (36.0-47.0) Mean Corpuscular Volume 85 fL (79-100) Mean Corpuscular Hemoglobin 29 pg (25-35) Mean Corpuscular Hemoglobin Concent 34 g/dL (31-37) Red Cell Distribution Width 13.6 % (11.5-14.5) Platelet Count 290 x10^3/uL (140-400) Neutrophils (%) (Auto) 86 % (31-73) H Lymphocytes (%) (Auto) 11 % (24-48) L Monocytes (%) (Auto) 3 % (0-9) Eosinophils (%) (Auto) 0 % (0-3) Basophils (%) (Auto) 0 % (0-3) Neutrophils # (Auto) 7.6 x10^3/uL (1.8-7.7) Lymphocytes # (Auto) 1.0 x10^3/uL (1.0-4.8) Monocytes # (Auto) 0.3 x10^3/uL (0.0-1.1) Eosinophils # (Auto) 0.0 x10^3/uL (0.0-0.7) Basophils # (Auto) 0.0 x10^3/uL (0.0-0.2) Segmented Neutrophils % 84 % (35-66) H Lymphocytes % 9 % (24-48) L Monocytes % 7 % (0-10) Platelet Estimate Adequate (ADEQUATE) Giant Platelets Occ Sodium Level 136 mmol/L (136-145) Potassium Level 3.4 mmol/L (3.5-5.1) L Chloride Level 102 mmol/L (98-107) Carbon Dioxide Level 25 mmol/L (21-32) Anion Gap 9 (6-14) Blood Urea Nitrogen 15 mg/dL (7-20) Creatinine 0.6 mg/dL (0.6-1.0) Estimated GFR (Cockcroft-Gault) 103.8 BUN/Creatinine Ratio 25 (6-20) H Glucose Level 108 mg/dL (70-99) H Calcium Level 10.3 mg/dL (8.5-10.1) H Total Bilirubin 0.4 mg/dL (0.2-1.0) Aspartate Amino Transferase (AST) 18 U/L (15-37) Alanine Aminotransferase (ALT) 16 U/L (14-59) Alkaline Phosphatase 103 U/L (46-116) Troponin I Quantitative < 0.017 ng/mL (0.000-0.055) Total Protein 7.3 g/dL (6.4-8.2) Albumin 3.9 g/dL (3.4-5.0) Albumin/Globulin Ratio 1.1 (1.0-1.7) Laboratory Tests 05/15/19 20:04 Laboratory Tests 05/15/19 20:04 (MK STOVALL APRN) EKG EKG [] (MK STOVALL APRN) Radiology/Procedures Radiology/Procedures [] (MK STOVALL APRN) Course & Med Decision Making Course & Med Decision Making Pertinent Labs and Imaging studies reviewed. (See chart for details) [Following medication, patient reports her nausea has improved. We'll administer PO medications for headache. Patient advises she had not taken her restless leg medication tonight, advise patient once we get her nausea improved, she can return home and take her home medications at that time. @[id number] patient reports her nausea is alleviated, states she still has some discomfort but wants to go home. Will provide Rx for Zofran ODT for nausea. Patient to follow up with PCP] (MK STOVALL APRN) Dragon Disclaimer Dragon Disclaimer This electronic medical record was generated, in whole or in part, using a voice recognition dictation system. (MK STOVALL APRN) Departure Departure Impression: Primary Impression: Nausea and vomiting Additional Impression: Headache Disposition: HOME, SELF-CARE Condition: STABLE Referrals: JOAQUIN REYES MD (PCP) Patient Instructions: Cluster Headache Additional Instructions: As we discussed, take your medications when he gets home. We have provided with a prescription for nausea medication, he may take this every 6-8 hours when you're feeling nauseous. You do not need to swallow pill, will dissolve unde rneath her tongue. Follow-up with your primary care provider in the next 4-5 days. Scripts Ondansetron (ONDANSETRON ODT) 4 Mg Tab.rapdis 4 MG PO Q8HRS PRN for NAUSEA/VOMITING, #10 TAB Prov: KM STOVALL APRN 05/15/19 Problem Qualifiers Primary Impression: Nausea and vomiting Vomiting type: unspecified Vomiting Intractability: unspecified Qualified Codes: R11.2 - Nausea with vomiting, unspecified Additional Impression: Headache Headache type: tension-type Headache chronicity pattern: acute headache Intractability: not intractable Qualified Codes: G44.209 - Tension-type headache, unspecified, not intractable MK STOVALL APRN May 15, 2019 20:28 JUSTIN SHAW MD May 15, 2019 23:19
[2019-05-15] MEDS ORDERED: IV NORMAL SALINE 1000ML BAG 1,000 ML IV ONE (20:30)
[2019-05-15] MEDS ORDERED: METOCLOPRAMIDE HCL 10 MG/2 ML VIAL. IVP ONE (20:30)
[2019-05-15] MEDS ORDERED: diphenhydrAMINE 50 MG/ML VIAL IVP ONE (20:30)
[2019-05-15 20:33] LABS: BASO % 0 % (0-3); EOS % 0 % (0-3); HEMATOCRIT 39.6 % (36.0-47.0); HEMOGLOBIN 13.4 g/dL (12.0-15.5); LYMPH % 11 % (24-48); MEAN CORPUSCULAR HEMOGLOBIN 29 pg (25-35); MEAN CORPUSCULAR HGB CONC 34 g/dL (31-37); MEAN CORPUSCULAR VOLUME 85 fL (79-100); MONO # 0.3 x10^3/uL (0.0-1.1); MONO % 3 % (0-9); NEUT # 7.6 x10^3/uL (1.8-7.7); NEUT % 86 % (31-73); PLATELET COUNT 290 x10^3/uL (140-400); RED BLOOD COUNT 4.64 x10^6/uL (3.50-5.40); RED CELL DISTRIBUTION WIDTH 13.6 % (11.5-14.5); WHITE BLOOD COUNT 8.8 x10^3/uL (4.0-11.0)
[2019-05-15 20:37] LABS: CALCIUM 10.3 mg/dL (8.5-10.1); CREATININE 0.6 mg/dL (0.6-1.0); GFR 103.8; POTASSIUM 3.4 mmol/L (3.5-5.1)
[2019-05-15 20:43] LABS: ALBUMIN 3.9 g/dL (3.4-5.0); ALBUMIN/GLOBULIN RATIO 1.1 (1.0-1.7); TOTAL BILIRUBIN 0.4 mg/dL (0.2-1.0); TOTAL PROTEIN 7.3 g/dL (6.4-8.2)
[2019-05-15 20:55] LABS: % LYMPHS 9 % (24-48); % MONOS 7 % (0-10); % SEGS 84 % (35-66); PLT ESTIMATE ADEQUATE (ADEQUATE)
[2019-05-15] MEDS ORDERED: ASA/APAP/CAFFEINE 250/250/65MG TABLET. PO PRN (21:00)
[2019-05-15 21:19] VITALS: BP 138/77
[2019-05-15] MEDS ORDERED: ONDA4TAB12 PO (21:36)
== END 2019-05-15 21:44 | disposition home or self-care (01) ==
LOC: ER 19:39
DX: R11.2 Nausea with vomiting, unspecified (principal); G43.909 Migraine, unspecified, not intractable, without status migrainosus; J44.9 Chronic obstructive pulmonary disease, unspecified; K21.9 Gastro-esophageal reflux disease without esophagitis; F31.9 Bipolar disorder, unspecified; Z90.710 Acquired absence of both cervix and uterus; Z88.5 Allergy status to narcotic agent; Z88.6 Allergy status to analgesic agent; Z88.8 Allergy status to other drugs, medicaments and biological substances
CPT/HCPCS: 36415; 80053; 84484; 85007; 85025; 96361; 96374; 96375; 99284; J1200; J2765; J7030